=== PATIENT | female | born 1930 | race Caucasian/White ===

== ENCOUNTER 2017-04-26 13:44 | Outpatient (CLI) | payer OTHER ==
--- NOTE | 2017-04-26 14:42 | DIAGNOSTIC IMAGING REPORT ---
PROCEDURE: XR THORACIC SPINE 2 VIEWS INDICATION: THORACIC SPINE PAIN X 2 MONTHS TECHNIQUE: Three views of the thoracic spine COMPARISON: None. FINDINGS: Diffuse demineralization. 12 thoracic vertebral bodies are normal in height without fracture. Mild to moderate degenerative endplate spurring mainly in the mid to lower thoracic spine, particularly T10-T12. The disc spaces are normally maintained. A very minor S-shaped scoliosis. Moderate smooth kyphosis but no AP subluxation. Paraspinal soft tissue stripe is normal. The visible soft tissues and ribs are normal. IMPRESSION: 1. Diffuse demineralization but no evidence of acute or chronic fracture. There is still concern for a subacute fracture, particularly osteoporotic fracture, MR would be useful, particularly in the setting of osteopenia.
== END 2017-04-26 23:00 | disposition home or self-care (01) ==
LOC: XR SRH 13:44
DX: M54.6 Pain in thoracic spine (principal)